=== PATIENT | male | born 1985 | race African-American/Black ===

== ENCOUNTER 2019-04-30 23:17 | Emergency (ER) | payer OTHER ==
[~2019-04-30] VITALS: Ht 188 cm; Wt 73.0 kg
[2019-04-30 23:25] VITALS: Ht 188 cm; Wt 73.0 kg
[2019-05-01 02:25] VITALS: BP 141/91
== END 2019-05-01 02:25 | disposition home or self-care (01) ==
LOC: ED 23:17
DX: J02.9 Acute pharyngitis, unspecified (principal); R50.9 Fever, unspecified; R51 Headache; R05 Cough